=== PATIENT | male | born 1940 | race Caucasian/White ===

== ENCOUNTER 2021-11-24 09:43 | Day surgery (SDC) | payer MEDICARE, SELFPAY ==
[2021-11-18 14:53] VITALS: BMI 21.7
[2021-11-24] VITALS (14 sets, daily range): BP systolic 96–126; BP diastolic 55–77; PULSE 43–63; RESP 10–21; TEMP 36–36.7; O2SAT 94–100; BMI 21.7
--- NOTE | 2021-11-24 | PATH_ITS ---
[facility] Accession Number: [id number] . 01 Material submitted: . prostate - PROSTATE CHIPS . 01 Diagnosis: Prostate Chips (32 grams), Transurethral Resection: Benign prostatic hyperplasia. No evidence of malignancy. MRV 11/27/2021 1219 Local . 01 Electronically signed: . Karin Coughlin MD, Pathologist NPI- [id number] . 01 Gross description: . Received in formalin labeled with the patient's name and prostate chips consists of 32 grams of pink-landeros rubbery tissue fragments aggregating to 7.2 x 5.9 x 1.4 cm. No lesions are identified. The specimen is submitted entirely in cassettes A1-A10. ([id number]) /V 11/25/2021 1634 Local . 01 Pathologist provided ICD-10: R33.9, N40.0 . 01 CPT . 488617 Specimen Comment: A courtesy copy of this report has been sent to [phone] Performed at: [facility] [address] [place] [address] [id number] MD Naif Love MD Phone: [phone]
[2021-11-24] MEDS: LACTATED RINGERS 1,000 ML 100 ML IV (10:32)
[2021-11-24 10:45] LABS: COVID19 -Nasal RAPID Negative (Negative)
--- NOTE | 2021-11-24 11:16 | PM.PREOP ---
Pre-operative Note COVID-19 Criteria for continued procedure: Expected advancement of disease process, Possibility delay results in more complex future surgery or treatment, Increased loss of function, Deterioration of the patient's condition or overall health and Delay expected to result in less-positive ultimate med/surg outcome Interval Note History & Physical reviewed/Exam performed by Physician: Yes Changes to H&P: No
[2021-11-24] MEDS: CEFAZOLIN 2 GM/20 ML SYRINGE IV (12:27)
[2021-11-24] MEDS: TRANEXAMIC ACID 1,000 MG in SODIUM CHLORIDE 0.9% 100 ML 200 MG IV (12:28)
[2021-11-24] MEDS: BELLADONNA/OPIUM SUPPOSITORIES 1 EACH PR (13:40)
--- NOTE | 2021-11-24 13:51 | P.OP_ITS ---
Operative Date/Time/Diagnoses Date of procedure: 11/24/21 Time of procedure: 13:30 Pre-op diagnosis: 1. Urinary retention 2. 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 Transurethral resection of prostate. 2. Cystoscopy/removal bladder calculus. Same procedure as scheduled: Yes Indications: 1. Urinary retention. 2. Outlet obstruction due to prostate. 3. Bladder calculus. Surgeon: Perez Ford Click Yes if Unassisted: Yes Anesthesia Type: Spinal Operative Notes Findings: 1. Urethra-normal caliber well and annular stricture lesion. 2. External sphincter-coapted with normal overlying urothelium. 3. Prostate-4.5+ cm length with markedly obstructing left greater than right lateral lobe and anterior obstruction. 4. Bladder-2+ trabeculation. A dark brown to black calculus with a mulberry morphology was identified in the dependent portion of the bladder measuring approximately 5 mm. It was successfully removed with the TUR loop through the resectoscope sheath. Specimen(s): other (1. Bladder calculus 2. Prostate TUR chips) Applied: catheter ([address] hematuria catheter) Estimated Blood Loss (mL): 5 Blood products transfused: none Procedure in detail: Patient was positioned in in supine following successful placement of spinal anesthetic. Lower abdomen, genitalia, and groin were then prepped and draped in sterile fashion. Continuous-flow resectoscope was then advanced lower urinary tract under direct visualization with the findings as described above. The working element of the scope was then fitted with the resecting loop. The index calculus was engaged and brought into the sheath of the resectoscope and removed successfully. He was submitted for routine crystallographic analysis. TUR of the obstructing prostate was then undertaken by 1st making incisions at the 1 and 11 positions to depth of the capsule. At no point was resection carried out deeper than the surgical capsule nor more distal than the verumontanum. Next, the intervening anterior tissue was resected. There was considerable volume that required resection before seen signs of capsular fibers per next the left lateral lobe was resected from the 1 position and working c lockwise down to 6:00 o'clock. Small amount apical tissue was left untouched adjacent to the verumontanum. Next, some recurrent growth from the right lateral fossa was resected to level of capsule and a more considerable amount of adenoma was present in the median lobe. In these areas were resected from bladder neck to level of verumontanum. Hemostasis was then obtained with electric cautery. All chips and clots were via hydrostatic or physical removal with the TUR loop. The TUR chips were submitted for routine gross and pathologic examination. The bladder was then left partially filled and the resectoscope was removed. A [address] hematuria catheter was then passed lower urinary track over a stylet without difficulty. The balloon was then inflated to 30 cc. It was hand irrigated to assure patency. He was then placed in normal saline continuous bladder irrigation and gravity drainage. The patient was then repositioned in supine, was transferred to [facility] and transferred to recovery room in stable condition. Complications: none Post-operative Condition: stable Disposition: PACU Plan for aftercare: Admit to acute care.
[2021-11-24] MEDS: LACTATED RINGERS 1,000 ML 125 ML IV ×2 (14:45→22:12)
--- NOTE | 2021-11-24 15:13 | PC.NURSE ---
Patient received from PACU to room 210, oriented to room and call light, and call light placed within reach. Thompson in place with CBI with normal saline running, urine is pink, currently without clots noted. Patient denies pain. Will continue monitor.
[2021-11-25 00:45] VITALS: BP 152/73; PULSE 56; RESP 12; O2SAT 97
[2021-11-25] MEDS: LEVOTHYROXINE 50 MCG TABLET PO (05:37)
[2021-11-25] MEDS: LACTATED RINGERS 1,000 ML 125 ML IV (05:37)
[2021-11-25 06:00] VITALS: BP 118/69; PULSE 77; RESP 18; TEMP 36.8; O2SAT 97
--- NOTE | 2021-11-25 07:50 | P.DS_ITS ---
History of Present Illness History of Present Illness Date Patient Seen: 11/25/21 Time Patient Seen: 07:51 Chief complaint: SDC Narrative: The patient is a 81-year-old male admitted on 11/24/2021 for schedule TURP for urinary retention. Discharge Providers Provider Discharge Date: 11/25/21 Primary care physician: Eugene Aguilar DO Consults: 11/24/21 10:48 Consult to Respiratory Therapy Evaluate & Treat Comment: Physician Instructions: Evaluate and treat Discharge provider: Perez Ford MD Summary Hospital Course Discharge Diagnosis: 1. Urinary retention. Hospital Course: Patient was admitted 11/24/2021 and underwent uncomplicated transurethral resection of the prostate under spinal anesthesia. His postop course was unremarkable in the tolerated general diet, was able ambulate independently, and had no challenges in terms of postoperative pain management. On 11/25/2021 he was stable for discharge with plan to leave Thompson to gravity and conduct a supervised voiding trial in the Urology Clinic. Pathology report was pending at discharge. Status at Discharge Cognitive/behavioral status at discharge: oriented Functional status at discharge: independent ambulation Overall status at discharge: patient is back to baseline Exam Vital Signs (past 8 hours): - 11/25/21 00:45 11/25/21 06:00 Temperature 98.3 F Pulse Rate 56 L 77 Respiratory Rate 12 18 Blood Pressure 152/73 H 118/69 Pulse Oximetry 97 97 Oxygen Flow Rate 0 0 Oxygen Delivery Method Room Air Oxygen Flow Rate 0 Narrative Exam Narrative: Well-developed and well-nourished elderly fellow sitting upright in bed and in no distress. Chest-equal and unlabored expansion bilaterally. Heart-normal sinus rhythm. Abdomen - Nontender. Soft. Nondistended. Thompson 1-intact indwelling with a light pink tinged outflow without clot. Objective Labs Labs: Laboratory Results - last 24 hr 11/24/21 09:49 SARS-CoV-2 (PCR) Negative [facility] Medical History Arthritis Bladder calculi BPH (benign prostatic hyperplasia) BPH w urinary obs/LUTS Urinary retention Surgical History H/O hernia repair (1988) H/O transurethral resection of prostate Family History Father CAD in [place] artery Mother Hypertension Social History marital status: number of children: 2 household members: spouse Smoking Status: Former smoker alcohol intake: former Type(s) of exercise: aerobic frequency: 5-6 times per week Discharge Assessment & Plan Assessment and Plan Assessment: 1. Stable postoperative day 1. Status post transurethral resection of prostate. Plan of Treatment: 1. Discharge later today with indwelling Thompson. 2. Outpatient supervised voiding trial will be arranged in the Urology Clinic. 3. Pathology pending at discharge. Follow-up with patient by phone when final. Discharge Plan Discharge Plan Patient Disposition: Home Provider Discharge Comment: Contact the urology clinic later today to schedule time for Thompson catheter removal and voiding 11/26/2021. Discharge orders & Medications Discharge Orders: Discharge (Order); Ordered 11/25/21 Ordered By: Perez Ford Prescriptions: New cephalexin 250 mg capsule 250 mg PO BID Qty: 10 0RF oxycodone 5 mg tablet 5 mg PO Q6H PRN (Reason: pain) Qty: 10 0RF Continued levothyroxine 50 mcg capsule 50 mcg PO DAILY guanfacine 1 mg tablet 1 mg PO DAILY metformin 500 mg tablet 500 mg PO DAILY escitalopram oxalate 20 mg tablet 20 mg PO DAILY finasteride 5 mg tablet 5 mg PO DAILY Qty: 90 3RF Follow up/Referrals: Eugene Aguilar DO [Primary Care Provider] - Diet/Activity/Treatments Diet: Diet as Tolerated Activity: No lifting greater than 15 lb x 4 weeks. Catheter: 3-way Thompson Catheter comment: Use leg bag during day when outside of home. Use large bag at night. Skin/Wound/Dressing Care Report to your healthcare provider any signs of infection, such as:: chills, fever, night sweats, increased pain and unusual redness Visit Report/Discharge Packet Instructions: How to Care for Your Thompson Catheter -- Male, DI for Cystoscopy, DI for Transurethral Resection of the Prostate Stand Alone Forms: Surgery Discharge Discharge Data Primary Care Provider: Eugene Aguilar Attending Provider: Perez Ford VTE Deep Vein Thrombosis/Pulmonary Embolism Present on Admission: No
[2021-11-25 07:51] VITALS: BP 108/49; PULSE 61; RESP 17; TEMP 36.9; O2SAT 98
[2021-11-25 08:09] VITALS: PULSE 54; RESP 18; O2SAT 95
[2021-11-25] MEDS: ESCITALOPRAM 10 MG TABLET 20 MG PO (08:37)
[2021-11-25] MEDS: METFORMIN HCL 500 MG TABLET PO (08:37)
[2021-11-25] MEDS: FINASTERIDE 5 MG TABLET PO (08:37)
[2021-11-25] MEDS: GUANFACINE 1 MG TABLET PO (08:37)
--- NOTE | 2021-11-25 11:44 | CM.DANOTE ---
ROZ Note: Payor: Medicare PCP: MD Lauren Pt is a 81 y.o. status post TURP on 11/24. Pt lives on [place] with his JuanM anuel. Pt is a retired estate attorney and is fairly independent at baseline. DCP met with pt this morning. Pt sitting up in bed using incentive spirometer. DCP introduced self and role. Pt states that he lives in a two story house on [place]. Pt still currently drives POV. Pt states that MD verbalized to him that he will be discharging later today. Pt states that his son will come and pick him up once discharged and will take him to a Motel [address] here in [place] so that he can make his urology appointment tomorrow to take the Chairez out. [place] for appointments so he stays over in a motel when he can. Pt declines any needs at this time. White board updated and instructed to call with any other questions that may arise. DCP spoke with over the phone this morning and she verbalized that she [place] 3:30 ferry today to pick pt up when he gets discharged. She states that she will be driving him to the motel tonight and to the appointment tomorrow. She also states that she has a scheduled ferry time tomorrow for noon so she is requesting getting the appointment early in the morning to help accommodate that. DCP verbalized that she would update the RN. Juan Manuel thankful for the conversation. CHAIP spoke with NATALIIA Menjivar and updated her on pt discharge plan per . P: Once pt is medically ready to go this afternoon, pt is to discharge home to [facility] for the night via spouse POV and attend his outpatient urology appointment tomorrow for removal of chairez catheter. Rhea Soni RN/ROZ Discharge Planning/Care Management CM Discharge Assessment Start: 11/25/21 09:16 Freq: Status: Active Protocol: Document 11/25/21 09:16 EDDI (Rec: 11/25/21 09:17 EDDI [id number]) Discharge Planning Assessment Assigned Child Support Agent Rhea Soni RN/ROZ Advance Directives? Yes Advance Directives on File No History Provided By Patient Prior Living Arrangements House Household Members spouse Type of transporation used prior to Drives own vehicle admit Independent with ADL's Yes Is patient alert and oriented? Yes Caregiver for Another No Discharge Plan Home Referrals Initiated None needed Additional Comment At this time Whiteboard Updated in Patient Room with Yes name and ext. # of Child Support Agent Comment Instructed to call Review Status In Process Please Provide Date Initial DC 11/25/21 Assessment Was Performed Next Review Type Continued Stay Review Pre-Anesthesia Assessment Start: 11/18/21 14:52 Freq: Status: Complete Protocol: Document 11/18/21 14:53 CAB (Rec: 11/18/21 15:00 CAB [id number]) Pre-Anesthesia Assessment Preferred Name Jase Patient Information Reviewed Via Chart Review Comment COVID screen @ 11/21/21 Height 185.42 cm Weight 74.843 kg Body Mass Index (BMI) 21.7 Barriers to Learning None Anesthesia Review Requested No Flue Lining Dipper No alcohol intake former Alcohol Intake Frequency Other: Stopped in 1995 Smoking Status Former smoker Tobacco type cigarettes how long ago did patient quit smoking Quit 1979 Substance Use Type does not use Patient is completely paralyzed or No completely immobile Mental Status Oriented to own ability Hx Sleep Apnea No Currently Taking a Beta Jaciel No Anti-Coagulant Therapy No Cardiac Testing No Hx Pacemaker/ICD No Pacemaker Rep Required? No Bladder Pattern Retention Urinary Catheter Present No Diabetes No: Diabetes not listed in history, pt is taking Metformin Marital Status Lives With spouse Patient Discharge Plan Description Return Home Comment Lives on [facility]
[2021-11-25 11:45] VITALS: BP 113/53; PULSE 63; RESP 18; TEMP 37.3; O2SAT 98
--- NOTE | 2021-11-25 13:23 | PC.NURSE ---
Pt. up to br to empty chairez bag with instruction from VAULT ATTENDANT then out to walk in the halls. Urine is clear and pink. Pt denies pain. Chair alarm on for safety when sitting and on bed when in bed.
[2021-11-25 15:48] VITALS: BP 131/58; PULSE 64; RESP 17; TEMP 37.2; O2SAT 97
--- NOTE | 2021-11-25 19:16 | PC.NURSE ---
DISCHARGE NOTE: Awaited family to arrive for patient teaching as patient is forgetful. Patients was called and on speaker phone, daughter at bedside. Patient teaching reveiwed and discussed proper ways of cath. cleaning and care. Patient leaves with Cath, appt with Dr. Ford at 8am on 11/26. Patient aware of pain med rx sent to local pharm and anti bx was sent to pharm on [address] (where pt lives). All questions and concerns were addressed. Pt escorted down to personal vehicle via wheel chair. Patient left in stable condition. IV removed, cath intact and flowing bloody urine.
[2021-11-27 08:16] LABS: Ca oxalate monohydr 100 % (.); Size 4x4 mm (.)
== END 2021-11-25 18:15 | disposition home or self-care (01) ==
LOC: OR 09:47 → AC 14:56
PROVIDERS: PCP Family Medicine; Referring Provider Specialist; Visit Provider Specialist
PROC: 0VT08ZZ Resection of Prostate, Via Natural or Artificial Opening Endoscopic (ICD-10-PCS; CPT 52601; principal; 2021-11-24 11:15)
PROC: 0TCB8ZZ Extirpation of Matter from Bladder, Via Natural or Artificial Opening Endoscopic (ICD-10-PCS; CPT 52601; 2021-11-24 11:15)
DX: R33.9 Retention of urine, unspecified (principal); N40.1 Benign prostatic hyperplasia with lower urinary tract symptoms; N13.8 Other obstructive and reflux uropathy; N21.0 Calculus in bladder
CPT/HCPCS: 52601; 52310; 82365; 82962; 87635; 94760; 94762; J0690; J2274; J2704; J3010

== ENCOUNTER → 2022-01-06 10:20 | Outpatient (CLI) | payer MEDICARE, SELFPAY ==
[2021-11-25 12:43] VITALS: BMI 21.7
== END ==
PROVIDERS: PCP Family Medicine; Visit Provider Specialist
DX: Z09 Encounter for follow-up examination after completed treatment for conditions other than malignant neoplasm (principal); N40.1 Benign prostatic hyperplasia with lower urinary tract symptoms; N13.8 Other obstructive and reflux uropathy; N21.0 Calculus in bladder; R33.9 Retention of urine, unspecified
CPT/HCPCS: 51798; 81002; 87086

== ENCOUNTER → 2022-03-20 09:38 | Outpatient (CLI) | payer MEDICARE, SELFPAY ==
[2021-11-25 12:43] VITALS: BMI 21.7
[2022-03-20 10:35] LABS: COVID19 -Nasal RAPID Negative (Negative)
== END ==
PROVIDERS: PCP Family Medicine; Referring Provider Internal Medicine Pulmonary Disease; Visit Provider Internal Medicine Pulmonary Disease
DX: J84.112 Idiopathic pulmonary fibrosis (principal)
CPT/HCPCS: 87635; C9803

== ENCOUNTER → 2022-03-20 10:24 | Outpatient (CLI) | payer MEDICARE, SELFPAY ==
[2021-11-25 12:43] VITALS: BMI 21.7
--- NOTE | 2022-03-25 11:17 | P.PFT.S_ITS ---
Pulmonary Function Test Referral & Results Date Patient Seen: 03/20/22 Requesting provider: Melinda Ellison Results: The spirometry demonstrates an FVC of 4.61 L which is 91% of predicted. The FEV1 was measured at 2.50 L which is 69% of predicted. The FEV1/FVC ratio was 54 which is 76% of predicted. Following the administration of bronchodilator there was a 30% improvement in FEV1 and a 75% improvement in FEF 25-75%. Lung volumes show an SVC of 4.50 L which is 85% of predicted. The diffusing capacity was measured at 19.84 which is 49% of predicted. No hemoglobin value was provided, so no correction for potential anemia could be made, if appropriate. The maximum voluntary ventilation was 117% Interpretation: This study demonstrates moderate obstructive lung disease based on reduction FE V1 as well as significant benefit following bronchodilator as above There is a minimal reduction in lung volumes suggesting the possibility of very minimal restrictive lung disease There is a moderate to moderately severe reduction diffusing capacity suggesting significant disease at the capillary alveolar level as well Clinical correlation suggested
== END ==
PROVIDERS: PCP Family Medicine; Referring Provider Internal Medicine Pulmonary Disease; Visit Provider Internal Medicine Pulmonary Disease
DX: J84.112 Idiopathic pulmonary fibrosis (principal); Z87.891 Personal history of nicotine dependence
CPT/HCPCS: 87635; 94060; 94726; 94729; C9803

== ENCOUNTER → 2022-06-24 10:04 | Outpatient (CLI) | payer MEDICARE, SELFPAY ==
[2021-11-25 12:43] VITALS: BMI 21.7
--- NOTE | 2022-06-24 10:06 | DI.US.S_ITS ---
PROCEDURE: US RENAL COMPLETE INDICATIONS: POSSIBLE BLADDER STRICTURE, NECK CONTRACTURE TECHNIQUE: Real-time scanning was performed of the kidneys and bladder, with image documentation. COMPARISON: None. FINDINGS: Kidneys: Kidneys are normal in size. Right kidney measures 11.9 cm long; left kidney measures 11.7 cm long. Right renal cortical thickness is 1.8 cm; left renal cortical thickness is 1.3 cm. Renal cortical echotexture is normal. No hydronephrosis or nephrolithiasis. No suspicious solid mass lesions. Bladder: Pre-void bladder volume is 451 mL. Patient was unable to void. After attempting to void, the bladder measurement is 434 mL. Pre-void images demonstrate no intraluminal masses or stones. 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 On pre-void images, both ureteral jets are noted with color Doppler interrogation. (Of note, ureteral jets may not be detectable in up to 25% of cases due to insufficient differences in specific gravity between ureteral and bladder urine). Miscellaneous: No free pelvic fluid. IMPRESSION: Urinary retention, with the patient unable to void, despite a prevoid bladder volume measurement of 451 cc. 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 Dictated by: Eugene Mcpherson M.D. on 06/24/2022 at 12:16 Approved by: Eugene Mcpherson M.D. on 06/24/2022 at 12:18
== END ==
PROVIDERS: PCP Family Medicine; Referring Provider Specialist; Visit Provider Specialist
DX: N40.1 Benign prostatic hyperplasia with lower urinary tract symptoms (principal); N13.8 Other obstructive and reflux uropathy; R33.9 Retention of urine, unspecified; N21.0 Calculus in bladder; N32.3 Diverticulum of bladder
CPT/HCPCS: 76770

== ENCOUNTER 2022-07-13 06:32 | Day surgery (SDC) | payer MEDICARE, SELFPAY ==
[2021-11-25 12:43] VITALS: BMI 21.7
[2022-07-13 07:06] VITALS: BP 143/85; PULSE 73; RESP 18; TEMP 36.5; O2SAT 100; BMI 21.3
[2022-07-13] MEDS: LACTATED RINGERS 1,000 ML 21 ML IV (07:20)
--- NOTE | 2022-07-13 07:29 | PM.PREOP ---
Pre-operative Note COVID-19 Criteria for continued procedure: Expected advancement of disease process, Increased loss of function, Deterioration of the patient's condition or overall health, Delay expected to result in less-positive ultimate med/surg outcome and Non-surgical alternatives not available or appropriate per current SOC Interval Note History & Physical reviewed/Exam performed by Physician: Yes Changes to H&P: No
[2022-07-13] MEDS: CEFAZOLIN 2 GM/100 ML PREMIX 100 ML IV (07:48)
[2022-07-13] MEDS: TRANEXAMIC ACID 1,000 MG in SODIUM CHLORIDE 0.9% 100 ML 200 MG IV (08:19)
--- NOTE | 2022-07-13 08:24 | SUR.OPER ---
Lithotomy on padded OR bed, head on pillow, arms secured on padded arm boards at <90 degrees abduction. Legs secured in padded yellow fins stirrups.
--- NOTE | 2022-07-13 09:06 | P.OP_ITS ---
Operative Date/Time/Diagnoses Date of procedure: 07/13/22 Time of procedure: 09:06 Pre-op diagnosis: Bladder outlet obstruction Post-op diagnosis: same Procedure & Clinicians Procedure: 1. Cystoscopy/ Redo Transurethral resection of prostate (obstructing left lateral lobe). 2. Cystoscopy/Transurethral resection of bladder neck contracture. Same procedure as scheduled: Yes Indications: 1. Obstructing left lateral prostate regrowth. 2. Bladder neck contracture. 3. Urinary retention. Surgeon: Perez Ford Click Yes if Unassisted: Yes Anesthesia Type: General Operative Notes Findings: 1. Urethra-relative fossa navicular stricture. [place] sounds were used to gently dilate to 28 American. There was proximally 18-20 American annular distal bulbar stricture negotiated under direct visualization with the resectoscope. 2. External sphincter-slightly gaping. Well vascularized. 3. Prostate-status post TUR with well resected a nonobstructing right lateral lobe from bladder neck to verumontanum. Left lateral lobe was obstructing across the midline. 4. Bladder-very tight, vertical bladder neck contracture proximally 5 mm by 3 mm width. Normal ureteral orifices bilaterally. 1+ trabeculation. Closure Type: not applicable Specimen(s): none sent Applied: catheter (Twenty-[address] catheter to gravity drainage.) Estimated Blood Loss (mL): 0 Blood products transfused: none Procedure in detail: The patient was positioned in supine and was administered general anesthesia. Report from anesthesia was that he did not, or could not, tolerate placement of a spinal. The patient was positioned in semi-lithotomy and the lower abdomen, genitalia, and groin were then prepped and draped in sterile fashion. The resectoscope could not be inserted into the urethral easily and therefore the fossa navicularis was gently dilated with the [place] sounds to 28 American only distally. The resectoscope was then advanced lower urinary tract and advanced proximally with the findings as described above up to the level of the prostatic fossa. Working element was then fitted with the button electrode and the obstructing left lateral lobe tissue was favor cauterized. Risk section did not go beyond the verumontanum. When positioned at the verumontanum looking proximally prostatic fossa then appeared patent. Next, the button electrode was insinuated in the tight bladder neck aperture and extensive lateral incisions were made at the 3, and 9 o'clock positions until vascularized tissue was reach. Now the bladder neck was widely patent. The scope was advanced in the bladder inspection revealed the findings as described above. Small amount of tissue fragments that were charred wide dependently in the floor the bladder. The [place] evacuator was then used to clear the bladder of all debris. The bladder was then left partially filled in the resectoscope was removed. A [address] Thompson catheter was then positioned in the bladder satisfactorily over a catheter guide. The balloon was filled to 10 cc and placed to gravity drainage. The patient was then repositioned supine, was awakened, then was transferred to [facility] in stable condition. Complications: none Post-operative Condition: stable Disposition: PACU Plan for aftercare: Discharge home.
[2022-07-13 09:08] VITALS: BP 129/74; PULSE 74; RESP 13; TEMP 36.4; O2SAT 98
[2022-07-13 09:14] VITALS: BP 121/68; PULSE 74; RESP 14; O2SAT 96
[2022-07-13 09:19] VITALS: BP 134/88; PULSE 76; RESP 20; O2SAT 96
[2022-07-13 09:22] VITALS: BP 121/85; PULSE 75; RESP 20; O2SAT 96
[2022-07-13 09:28] VITALS: BP 121/85; PULSE 73; RESP 15; TEMP 36.3; O2SAT 96
== END 2022-07-13 11:00 | disposition home or self-care (01) ==
LOC: OR 06:35 → AC 06:39
PROVIDERS: PCP Family Medicine; Referring Provider Specialist; Visit Provider Specialist
PROC: 0VT08ZZ Resection of Prostate, Via Natural or Artificial Opening Endoscopic (ICD-10-PCS; CPT 52601; principal; 2022-07-13 07:45)
PROC: 0TBC8ZZ Excision of Bladder Neck, Via Natural or Artificial Opening Endoscopic (ICD-10-PCS; CPT 52500; 2022-07-13 07:45)
DX: N40.1 Benign prostatic hyperplasia with lower urinary tract symptoms (principal); R33.9 Retention of urine, unspecified; N32.0 Bladder-neck obstruction; N99.115 Postprocedural fossa navicularis urethral stricture
CPT/HCPCS: 52630; J0690; J1100; J2704; J3010

== ENCOUNTER → 2023-03-10 15:52 | Outpatient (CLI) | payer MEDICARE, SELFPAY ==
[2022-07-20 14:25] VITALS: BMI 21.7
== END ==
PROVIDERS: PCP Family Medicine; Visit Provider Specialist
DX: R33.9 Retention of urine, unspecified (principal); N31.2 Flaccid neuropathic bladder, not elsewhere classified; Z87.440 Personal history of urinary (tract) infections
CPT/HCPCS: 51798; 81002; 87086; 99215